=== PATIENT | male | born 1955 | race Caucasian/White ===

== ENCOUNTER 2017-03-14 10:40 | Emergency (ER) | payer BC ==
[~2017-03-14] VITALS: Ht 182.9 cm; Wt 86.2 kg
[~2017-03-14 10:40] MED LIST: DSY100 PO; FLNIN NAE; METO25TA56 PO; PRX/40 PO; SILD100T PO
[2017-03-14 10:42] VITALS: TEMP 36.8; Ht 182.9 cm; Wt 86.2 kg
[2017-03-14] MEDS ORDERED: FLNIN/ NAE (11:09)
[2017-03-14] MEDS ORDERED: METO25TA3 PO (11:09)
[2017-03-14] MEDS ORDERED: LIDO/EPINEPHRINE/SOD BICARB 20 ML VIAL INFIL ONE (11:47)
[2017-03-14 12:27] VITALS: BP 125/85; PULSE 78; O2SAT 95
--- NOTE | 2017-03-14 17:08 | EMERGENCY ROOM VISIT NOTE ---
ED Visit Note First contact with patient: 11:03 Chief Complaint: I cut my left ring finger. History of Present Illness: Mr. Graves is a 61-year-old white male who ambulates into the ED complaining of a left ring finger laceration. Patient reports approximately 2 hours ago he was field dressing a deer. He reports he cut the tip of the left ring finger. Prior to arrival at the hospital he did control bleeding but did not wash the wound. Associated with his injury he reports he has a mild stinging and throbbing sensation over the tip of the ring finger. He rates his discomfort /10. His pain is nonradiating. His pain worsens with palpation. He has not identified any alleviating factors related to the pain. He has not taken any medication for pain prior to arrival at the hospital. He denies any associated symptoms including finger weakness/numbness/tingling. Review of Systems: As noted above in history of present illness. Past Medical History: Hypertension, depression, insomnia. Current Medications: Medications Dose Route/Sig Max Daily Dose Days Date Category Fluticasone Propionate 120 Sprays/6000 Mcg Inha 2 Sprays MARIANO DAILY 03/14/17 Reported Toprol Xl (Metoprolol Succinate) 25 Mg Tabcr 1 Tab PO DAILY 03/14/17 Reported Viagra (Sildenafil Citrate) 100 Mg Tab 100 Mg PO UD 12/17/13 Reported Paroxetine HCl (Paroxetine) 40 Mg Tab 40 Mg PO DAILY 12/17/13 Reported Trazodone HCl 100 Mg Tab 100 Mg PO DAILY 12/17/13 Reported Allergies to Medications: Patient denies. Social History: Patient is currently employed; he feels safe in his home environment; he denies tobacco use. Tetanus Immunization Status: Patient reports up-to-date. Physical Examination: Vital Signs: Date Time Temp Pulse Resp B/P (MAP) Pulse Ox O2 Delivery O2 Flow Rate FiO2 03/14/17 12:27 78 16 125/85 95 03/14/17 10:42 36.8 80 18 150/87 95 Room Air GENERAL: 61-year-old male in no acute distress, nontoxic-appearing, afebrile and hemodynamically stable. NEUROLOGICAL: Awake, alert and oriented to person, place and time. Answering questions appropriately and following commands. SKIN: Warm, dry and pink. Left Ring Finger: Over the tip of the finger patient has a 2.1 cm full-thickness laceration. No active bleeding. LEFT RING FINGER: Soft tissue is noted above in SKIN. No gross bony deformity. No tenderness throughout the MCP, PIP and DIP joints. Full range of motion of muscle strength in these joints. Patient's laceration does not expose any bones. There is no extension into his nail or the nailbed. Throughout the finger the skin was warm and pink and capillary refill is brisk. He was able to distinguish light sensations through all dermatomes. ED Course: Patient is assessed as noted above. Wound Repair: Complexity: Basic Verbal consent was obtained after the risks and benefits were explained. The skin was prepped with betadine and a sterile field set. Wound edges of the wound was anesthetized with 1.1 ml buffered 1% lidocaine. The wound was explored for foreign bodies and none found. Copious irrigation was performed using sterile saline. With direct pressure the bleeding subsided. Debridement was not performed. The wound edges were approximated using 5-0 Ethilon with 4 simple interrupted sutures. Hemostasis and excellent approximation was achieved. Antibacterial ointment and a sterile dressing applied. No complications and the patient tolerated the procedure well. Patient was educated about tonight's findings and instructed on his treatment plan; he verbalizes understanding and agreement with this plan. Clinical Impression: Laceration of the left index finger. Disposition: Patient discharged home in stable condition; prior to departure he was reassessed and subjectively reported he was pain-free. Plan: Comfort measures, wound care, and signs of infection were discussed with the patient. Patient was encouraged to follow-up with PCP or return to the ED for any signs of infection and/or suture removal in 10-12 days.
== END 2017-03-14 12:25 | disposition home or self-care (01) ==
LOC: C.EDB 10:42 → C.EDD 12:25
DX: S61.215A Laceration without foreign body of left ring finger without damage to nail, initial encounter (principal); W26.0XXA Contact with knife, initial encounter; I10 Essential (primary) hypertension; E32.9 Disease of thymus, unspecified; G47.00 Insomnia, unspecified

== ENCOUNTER → 2017-08-02 | Outpatient (CLI) | payer OTHER ==
[~2017-08-02] MED LIST changes: -FLNIN NAE; +FLNIN/ NAE; +METO25TA4 PO; -METO25TA56 PO
--- NOTE | 2017-08-02 12:12 | DIAGNOSTIC IMAGING REPORT ---
RIGHT ANKLE 3 VIEWS HISTORY: PAIN IN R ANKLE AND JOINTS IN R FOOT COMPARISON: None. FINDINGS: There is no fracture or dislocation. Mild anterior soft tissue swelling. No radiopaque foreign bodies. IMPRESSION: No fractures. Electronically signed by: Varinder Gee M.D. 08/02/2017 12:11 PM Dictated Date/Time: 08/02/2017 12:09 PM
== END | disposition home or self-care (01) ==
LOC: C.RAD 11:20
PROVIDERS: ATTEND Nurse Practitioner Family
DX: M25.571 Pain in right ankle and joints of right foot (principal)